=== PATIENT | female | born 1990 | race Caucasian/White ===

== ENCOUNTER → 2016-10-03 | Outpatient (CLI) | payer MEDICAID ==
[~2016-10-03] MED LIST: AMOXICILLIN 50500 MG PO; ATIVAN0.5 MG PO; CIPRO 500MG TA500 MG PO; DARVOCET-N 1001 EACH PO; ESGIC PLUS PO; FLEXERIL10 MG PO; KEFLEX 500MG.500 MG PO; MACROBID100 M3 PO; MINOCYCLINE 10100 MG PO; MOTRIN 400MG.400 MG PO; NOMEDS *; NOMEDS XX; ORTHO-CYCLEN 351 TA1 PO; PERCOCET 5/3251 EACH PO; PERCOCET1 TAB PO; PHENERGAN12.5 M3 PO; PREDNISONE 20MG20 MG PO; PYRIDIUM200 M2 PO; STERAPRED DS10 MG PO; SULFAMETHOXAZOL1 TA6 PO; ULTRAM 50 MG TA50 MG PO; ZITHROMAX Z PA250 MG PO; ZITHROMAX Z-PA250 M1 PO; ZOFRAN4 MG PO; [UNRECOGNIZED DRUG - OTHER] PO
--- NOTE | 2016-10-06 23:13 | RADIOLOGY REPORT PS360 ---
US PREG COMP INDICATION: 20 WEEK ANATOMICAL SURVEY TECHNIQUE: ultrasound transabdominal scanning/ COMPARISON: 07/22/2016 renal ultrasound showed 10 week 4 day average ultrasound age. FINDINGS Single viable intrauterine gestation. Initially towards Cephalic position with hand overhead on the early images,, but latter images suggest fetus rotated with into a transverse/partial breech position . Limited views of the cervix but it appears to be adequate length at 3.6 cm, & closed Fundal placenta wraps anterior to posterior. Mainly posterior placenta by technologist. Complete survey performed & was unremarkable on the submitted images as in PACS.No discrete anomalies identified on survey imaging by technologist Active fetus. Three-vessel cord with satisfactory umbilical cord insertion. . Survey of brain & ventricles unremarkable. Cerebellum and posterior fossa unremarkable Face and neck survey unremarkable. Nasion. lips. Orbits overall satisfactory on today's survey Diaphragm & views chest unremarkable. Four-chamber heart are visualized. Today's images of the heart do not seem to be optimal. I see no gross findings but there is upper normal echogenicity near the mitral valve on the cc view which was included.. I discussed findings with nuclear medicine technologist, and a suggested considering repeat follow-up as heart was difficult to visualizeperBH . abdomen: Both kidneys noted & unremarkable. Stomach noted & satisfactory. spine: Survey of the spine satisfactory with no anomalies identified nor imaged Both arms and legs noted. Amniotic fluid.-Adequate. Maternal adnexa -no gross incidental encountered. measurements:. Average ultrasound age 20 week 1 day. Gestational age 21 week 0 day based on LMP of 05/09/2016. BPD = 19 week 6 day OFD = 20 week 5 day HC = 19 week 5 day AC = 20 week 6 day FL = 20 week 0 day Heart rate = 147 BPM. Cerebellum = 20 week 1 day humerus = 20 week 2 day Hc/AV ratio = 1.09 (1.06-1.25 CI = 74% (70-86%) FL/BPD = 70% FL/AC = 21% (20-24%) IMPRESSION: Single viable intrauterine gestation in variable position currently. Began cephalic the latter images would suggest venous rotated towards the transverse position and possibly slightly breech. 20 week 1 images are not optimal average ultrasound age with today's measurements Fundal posterior placenta. Active fetus. No discrete abnormalities identified on the submitted anatomical survey. However cardiac activity images are limited. The technologist reports that it was difficult to image at the setting, and on this exam Consider & Would encourage follow-up to better visualize evaluate four-chamber heart
== END ==
LOC: RAD 09-30 10:00
DX: Z36 Encounter for antenatal screening of mother (principal)

== ENCOUNTER 2017-01-29 20:50 | Inpatient (IN) | payer MEDICAID ==
[~2017-01-29] VITALS: Ht 167.6 cm; Wt 85.4 kg
[2017-01-29 22:35] VITALS: BP 126/81
[2017-01-29 22:55] LABS: LYMPH % 23.8 % (10-50.0)
[2017-01-29 22:59] LABS: URINE BILIRUBIN - DIPSTICK NEGATIVE (NEG); URINE BLOOD NEGATIVE (NEG)
[2017-01-29 23:02] LABS: HEMOGLOBIN 9.6 g/dL (12.2-16.2)
[2017-01-29 23:10] LABS: AMPHETAMINES/METAMPHETAMINES NEGATIVE ng/mL (<1000)
[2017-01-29 23:24] LABS: NEUTROPHILS 78 % (42-76)
[2017-01-30 00:03] LABS: ABO BLOOD TYPE O; RH BLOOD TYPE POSITIVE
[2017-01-30 05:00] LABS: URINE BILIRUBIN - DIPSTICK NEGATIVE (NEG); URINE BLOOD NEGATIVE (NEG)
[2017-01-30 05:05] LABS: URINE RENAL CELLS OCC #/HPF
[2017-01-30 07:30] VITALS: BP 112/56
--- NOTE | 2017-01-30 08:22 | LABOR NOTE ---
Laboring Subjective Subjective Date 01/30/17 Time 0820 Subjective: Pt is having regular contractions Laboring Objective Objective NST: Reactive Contractions: q 2-3 minutes Cervical dilation: 3 Effacement: 75% Station: -3 Membranes are: Intact Comment: Her membranes are still intact. The head is ballotable. She is 3 cm 75 percent - 3. The head was not engaged in the pelvis I did not ruptured her membranes. Fetus monitoring? Yes Type: External Laboring Assessment Assessment Progressing? No Cephalopelvic disproportion? No Problem List: 1. Laboring Plan Plan Anethesia for epidural? Yes Continue to labor down? Yes Plan for ? No Continue to monitor? Yes Start pushing? No Comment: She has an epidural and is having regular contractions. We will continue to monitor her. When the head comes down a little bit more we will plan to ruptured her membranes. at 0899
--- NOTE | 2017-01-30 10:04 | LABOR NOTE ---
Laboring Subjective Subjective Date 01/30/17 Time 1002 Subjective: Pt is having regular contractions Laboring Objective Objective NST: Reactive Contractions: q 2-3 minutes Cervical dilation: 3 Effacement: 75% Station: -2 Membranes are: Artificially ruptured (with clear fluid) Fetus monitoring? Yes Type: External Laboring Assessment Assessment Progressing? Yes Cephalopelvic disproportion? No Problem List: 1. Normal delivery Laboring Plan Plan Anethesia for epidural? Yes Continue to labor down? Yes Plan for ? No Continue to monitor? Yes Start pushing? No at 1009
--- NOTE | 2017-01-30 13:42 | LABOR NOTE ---
Laboring Subjective Subjective Date 01/30/17 Time 1341 Subjective: Pt is having regular contractions Laboring Objective Objective NST: Reactive Contractions: q 2-3 minutes Cervical dilation: 4-5 Effacement: 90% Station: -1 Membranes are: Artificially ruptured Fetus monitoring? Yes Type: Internal Comment: clip and iupc Laboring Assessment Assessment Progressing? Yes Cephalopelvic disproportion? No Problem List: 1. Normal delivery Laboring Plan Plan Anethesia for epidural? Yes Continue to labor down? Yes Plan for ? No Continue to monitor? Yes Start pushing? No at 1342
--- NOTE | 2017-01-30 16:48 | Delivery Note ---
Delivery note Delivery date: 01/30/17 Delivery time: 1630 Anesthesia: Epidural, Mj Lr Was labor medically induced? No Gestational age in weeks: 38 weeks Delivery prior to 39 weeks? Yes Justification for delivery: Active labor Sex: female score at one minute: 9 at 5 minutes: 9 Type of suction: bulb AF: Clear fluid LAC or MLE: LAC (none) Delivery procedure: Normal Delivery Delivery of placenta: spontaneous Clinical note She is a 26-year-old 3 para 2 who was 38 weeks gestational age. She arrived in early labor. She had her membranes ruptured and under labor epidural progressed to full dilation. She delivered spontaneously a liveborn female child at 4:30 PM in the afternoon of January 30, 2017. On delivery the head the anterior shoulder then rapidly delivered followed by the rest 's body atraumatically. The oropharynx and nasal fracture bulb suction. The baby cried spontaneously. We allowed the cord to continue to pulsate and after about a minute we doubly clamped the cord. The cord was clamped cut and the baby was placed on the mother's abdomen for further care. The nurses assigned Apgars of 9 at 1 minute and 9 at 5 minutes. We then obtained cord blood as well as cord pH. The pH was 7.29. Using gentle traction on the cord and countertraction on the fundus I was able to easily deliver the placenta intact. It had a normal three-vessel cord. She has O positive blood, she is rubella immune and was group B streptococcus negative. She plans to bottlefeed. Her supervisor small appliance assembly is Dr. Dahl. Estimate a blood loss was approximately 400 mL. at 0106
[2017-01-30 20:15] VITALS: BP 104/65
[2017-01-31 07:09] LABS: HEMOGLOBIN 8.5 g/dL (12.2-16.2)
[2017-01-31 07:30] VITALS: BP 103/63
[2017-01-31 07:45] VITALS: BP 103/63
--- NOTE | 2017-01-31 08:01 | ACUTE CARE PROGRESS NOTE (QUA) ---
Progress Notes Subjective Date 01/31/17 Time 0759 Note She is doing well this morning. She is eating and drinking and ambulating. She is bottlefeeding. Her lochia is normal. Patient/family reports: feeling better, no complaints Objective Findings Last VS-Temp:98.0 B/P:103/63 Pulse:75 Resp:16 SaO2:100 ROOM AIR Last weight lbs:188 oz:6 K.446 Method: Scales Laboratory Tests 01/31/17 0602: Hgb 8.5 L, Hct 25.5 L 01/30/17 1635: Cord Blood pH 7.30 L Exam General appearance: normal appearance, alert, awake, no acute distress Reviewed: vital signs, lab results Assessment/Plan Problem List 1. Normal delivery 2. Anemia, Patient condition Improving, Stable Plan: continue current care This inpt stay is expected to cross 2 MNs from start of care Yes Comments: She seems to be doing well this point. We'll plan to send her home tomorrow. at 0800
[2017-01-31] MEDS ORDERED: IRON TABLETS325 MG PO (09:10)
[2017-01-31] MEDS ORDERED: MOTRIN 400MG.400 MG PO (09:11)
--- NOTE | 2017-01-31 09:14 | Discharge Summary ---
Discharge Summary Admission date: 01/30/17 Discharge date: 01/31/17 Discharge diagnoses: Term , spontaneous vaginal delivery, maternal anemia Clinical note: She is a 26-year-old 3 now para 3 who is 38+ weeks gestational age. She came in in active labor and as result of that we elected to deliver her. Course in hospital: She had her membranes ruptured and under labor epidural progressed to full dilation. She delivered spontaneously a liveborn female child at 4:30 PM in the afternoon of January 30, 2017. Baby weighed 6 lbs. 3 oz. and was 18-1/4 inches long. She had Apgars of 9 at 1 minute and 9 at 5 minutes. There were no perineal or vaginal lacerations. She has done well and has remained afebrile throughout hospitalization. She is eating and drinking and ambulating. She is bottlefeeding. Her baby has what sounds like transient tachypnea of the and will be transferred to [facility]. She has O positive blood, she is rubella immune and was group B streptococcus negative. Her tender coordinator is Dr. Dahl. Laboratory Tests 01/31/17 0602: Hgb 8.5 L, Hct 25.5 L 01/30/17 1635: Cord Blood pH 7.30 L 01/30/17 0450: Urine Color YELLOW, Urine Appearance CLEAR, Urine pH 7.0, Ur Specific [place] 1.010, Urine Protein NEGATIVE, Urine Ketones NEGATIVE, Urine Blood NEGATIVE, Urine Nitrate NEGATIVE, Urine Bilirubin NEGATIVE, Urine Urobilinogen 0.2, Ur Leukocyte Esterase NEGATIVE, Urine WBC 3-5, Urine Renal Cells OCC, Amorphous Sediment TRACE, Urine Glucose NEGATIVE 01/29/17 2245: MCH 26.6 L 01/29/17 2245: WBC 16.6 H, RBC 3.61 L, Hgb 9.6 L, Hct 29.1 L, MCV 80.5 L, RDW 14.1, Plt Count 278, MPV 7.7, Gran % 70.4, Gran # 11.7 H, Total Counted 100, Lymphocytes % 23.8, Monocytes % 4.7, Eosinophils % 0.8, Basophils % 0.2, Neutrophils 78 H, Band Neutrophils 7, Lymphocytes (Manual) 14, Lymphocytes # 4.0, Monocytes ( Manual) 1 L, Monocytes # 0.8, Eosinophils # 0.1, Basophils # 0.0, Platelet Estimate NORMAL, Polychromasia SL., Rouleaux 2+, PUBS MCHC 33.0, Antibody Screen NEGATIVE, Miscellaneous Test POSITIVE 01/29/17 2100: Opiates Screen NEGATIVE, Urine Methadone Screen NEGATIVE, Barbiturates NEGATIVE, Phencyclidine Screen NEGATIVE, Amphetamines Screen NEGATIVE, Benzodiazepines Screen NEGATIVE, Cocaine Screen NEGATIVE, Marijuana (THC) Screen NEGATIVE, Urine Color YELLOW, Urine Appearance CLEAR, Urine pH 7.0, Ur Specific [place] 1.015, Urine Protein NEGATIVE, Urine Ketones NEGATIVE, Urine Blood NEGATIVE, Urine Nitrate NEGATIVE, Urine Bilirubin NEGATIVE, Urine Urobilinogen 0.2, Ur Leukocyte Esterase 1+ H, Urine WBC 10-20, Urine Glucose NEGATIVE Microbiology Date/Time Procedure - Status Source Growth 01/29 2100 Urine Culture - COMP URINE CC Plans for ongoing care: She is discharged home to follow-up with me in approximately 2 weeks' time. Discharge medications We have given her prescription for iron tablets and ibuprofen. DC/follow-up instructions She was given the usual instructions with respect to limiting her activity, driving and sexual activity. Condition at discharge Stable and improved at 0914
== END 2017-01-31 10:24 | disposition home or self-care (01) | DRG 775 ==
LOC: OBOUT 20:50 → OB 20:51 → OBOUT 21:23 → OB 21:26
PROVIDERS: Nurse Practitioner Obstetrics & Gynecology; Obstetrics & Gynecology
PROC: 10E0XZZ Delivery of Products of Conception, External Approach (ICD-10-PCS; principal; 2017-01-30)
DX: O80 Encounter for full-term uncomplicated delivery (principal); Z37.0 Single live birth; Z3A.38 38 weeks gestation of pregnancy
CPT/HCPCS: C1758; J2405